=== PATIENT | female | born 1955 | race Hispanic/Latino ===

== ENCOUNTER 2021-07-03 10:22 | Day surgery (SDC) | payer OTHER ==
[2021-06-27 15:20] LABS: Urine Appearance CLEAR (Clear); Urine Bilirubin NEGATIVE (Negative); Urine Blood NEGATIVE (Negative); Urine Color YELLOW (Yellow); Urine Glucose NEGATIVE (Negative); Urine Protein NEGATIVE (Negative); Urine pH 6.5 (5.0-7.0)
[2021-06-27 15:22] LABS: Absolute Lymphocytes (CBC) 3.1 K/uL (0.7-4.9); Basophils % 0.5 % (0-1.3); Hematocrit 39.5 % (36.0-45.0); MPV 7.7 fL (7.6-11.3); RBC Red Blood Cell Count 4.37 M/uL (3.86-4.86)
[2021-06-27 15:28] LABS: Urine Microscopic Reflex NO UMIC
[2021-06-27 15:29] LABS: Protime INR 1.05
[2021-06-27 15:35] LABS: Potassium 3.2 mmol/L (3.5-5.1)
[2021-07-03] MEDS ORDERED: Ringers Lactate 1,000 ML IV ONE ×2 (10:51→16:42)
[2021-07-03] MEDS ORDERED: CEFAZOLIN/SWI 2gm 2 GM/20 ML SYR ONE (10:51)
[2021-07-03] MEDS ORDERED: LIDOCAINE 1% W/EPI 1:100,000 MDV 20 ML VIAL ONE (13:20)
[2021-07-03] MEDS ORDERED: NA CHLORIDE 0.9% 100 ML IV ONE (13:20)
[2021-07-03] MEDS ORDERED: VASOPRESSIN 20 UNIT/ML VIAL ONE (13:21)
[2021-07-03] MEDS ORDERED: propofoL 200 MG/20 ML VIAL IV ONE (13:23)
[2021-07-03] MEDS ORDERED: ROCURONIUM 50 MG/5 ML VIAL IV ONE ×2 (13:23→15:20)
[2021-07-03] MEDS ORDERED: FENTANYL CITR 250 MCG/5 ML ONE (13:24)
[2021-07-03] MEDS ORDERED: LIDOCAINE 2% MPF 5 ML VIAL ONE (13:24)
[2021-07-03] MEDS ORDERED: GLYCOPYRROLATE 0.2 MG/ML SYR ONE (13:24)
[2021-07-03] MEDS ORDERED: MIDAZOLAM HCL 2 MG/2 ML INJ ONE (13:24)
[2021-07-03] MEDS ORDERED: ONDANSETRON 4 MG/2 ML VIAL ONE ×2 (13:25→17:26)
[2021-07-03] MEDS ORDERED: CEFAZOLIN SODIUM 1 GM/VIAL ONE (13:28)
[2021-07-03] MEDS ORDERED: BUPIVACAINE 0.25% PF 30 ML VIAL ONE (13:33)
[2021-07-03] MEDS ORDERED: EPHEDRINE SULF 50 MG/ML VIAL ONE (14:18)
[2021-07-03] MEDS ORDERED: NS 0.9% VIAL 10 ML ONE (14:19)
[2021-07-03] MEDS ORDERED: Phenylephrine HCl 10 MG/ML 1 ML VIAL ONE (14:19)
[2021-07-03] MEDS: Ringers Lactate 1,000 ML IV ONE ×2 (14:35→14:50)
[2021-07-03] MEDS ORDERED: ALBUTEROL INHALER 60 PUFF/8 GM IH PRN (16:41)
[2021-07-03] MEDS ORDERED: ACETAMINOPHEN 500 MG TAB PO PRN (16:42)
[2021-07-03] MEDS ORDERED: PROMETHAZINE INJ 25 MG/ML AMP IV PRN (16:42)
[2021-07-03] MEDS ORDERED: KETOROLAC 30 MG/ML INJ ONE (16:42)
--- NOTE | 2021-07-03 16:48 | P.BOP ---
Preoperative diagnosis: stage 2 ant an dpost wall prolapse,vault prolapse occult BOSSMAN Postoperative diagnosis: same and post enterocele Primary procedure: Ant repair w/biologic graft augmentation,bilSSLFcolpopexy Secondary procedure: post wall and enterocele repairs, TVT-O cysto Local Announcer: Hortencia Garcia Estimated blood loss: 100 Specimen: none Findings: 0/+1/-2/4/mod/7/-1/0/na,post eneterocele,PVDrepair sutures palp on sulci Anesthesia: General Complications: None Drain(s): Urinary catheter Implants: TVT-o dermapure Fluids & blood products: [id number] Transferred to: Recovery Room Condition: Good
[2021-07-03] MEDS ORDERED: FENTANYL CITR 100 MCG/2 ML ONE (17:26)
[2021-07-03 18:12] VITALS: BMI 32.0
[2021-07-03] MEDS: MORPHINE 2 MG/ML SYR IV PRN ×2 (18:40→22:40)
[2021-07-03 19:54] VITALS: O2SAT 99
[2021-07-03] MEDS: Ringers Lactate 1,000 ML IV SCH (22:00)
[2021-07-04] MEDS: MORPHINE 2 MG/ML SYR IV PRN (04:57)
[2021-07-04] MEDS: Ringers Lactate 1,000 ML IV SCH (06:06)
[2021-07-04 07:20] LABS: BUN Blood Urea Nitrogen 8 mg/dL (7-18); Bicarbonate 29 mmol/L (21-32); Glucose Level 91 mg/dL (74-106); Potassium 3.6 mmol/L (3.5-5.1); Sodium Level 140 mmol/L (136-145)
[2021-07-04 07:23] LABS: Absolute Lymphocytes (CBC) 1.6 K/uL (0.7-4.9); Basophils % 0.4 % (0-1.3); Lymphocytes % 15.2 % (15.3-44.8); MPV 7.4 fL (7.6-11.3); RBC Red Blood Cell Count 3.75 M/uL (3.86-4.86)
--- NOTE | 2021-07-04 07:37 | OP ---
Date of Procedure: 07/03/2021 Surgeon: Josi Abarca MD Preoperative Diagnosis: Stage II anterior vaginal wall prolapse and posterior wall prolapse, vault p rolapse, occult stress urinary incontinence. Postoperative Diagnoses: Stage II anterior vaginal wall prolapse and posterior wall prolapse, vault prolapse, occult stress urinary incontinence, and posterior enterocele. Procedures Performed: 1.Anterior repair with biologic graft augmentation and bilateral sacrospinous ligament fixation, col popexy through the anterior approach. 2.Posterior wall repair, enterocele repair, mid urethral sling and cystoscopy. Anesthesia: General. Specimens: No specimens. Complications: No complications. Drains: Peterson catheter and vaginal packing. Estimated Blood Loss: 100 Urine Output: 200 The patient tolerated the procedure well and was transferred to the recovery room in a stable conditi on. Findings: Intraop, POP-Q is 0, +1, -2, 4, moderate, 7, -1, 0, NA. Posterior enterocele was identifi ed during the posterior repair. There was significant midline defect as well as apex rather than par avaginal defect on this patient. After the patient was evaluated in the office, all the options were discussed with the patient. Her condition; diagnoses; alternatives of treatment including pessary, laparoscopic and vaginal repairs w ere all reviewed along with just pelvic floor exercises. The patient was given all reading material and urodynamic study, cystoscopy, and ultrasound were all performed. Ultrasound had no abdominal mas ses or pelvic masses. Cystoscopy did not show any bladder masses suspicious for cancer. Urodynamic study was performed to assess the function of the bladder. Occult stress urinary incontinence was no humberto. After discussing with the patient about the benefits and risks and recurrence rates of both the lapar oscopic and vaginal repairs, proceeded with the vaginal repair as the patient preferred to have vagin al surgery, fully understanding that the recurrence rate is higher than what it is with sacrocolpopex y. She was consented for anterior repair with biologic graft augmentation, bilateral sacrospinous co lpopexy, posterior repair, perineorrhaphy as needed and posterior enterocele as needed, and a mid ure thral sling. After the intraoperative and postoperative complications were explained to the patient in the office as well in the preoperative area, she was consented and taken back to OR. 2 g of Ancef was given. SCDs were started. She was placed in the dorsal lithotomy position after general anesth esia was given in a supine fashion. She was placed in Robert stirrups. All the positioning was check ed. A safe time-out was done. Then, abdomen, vulva, vagina, and perineum were prepped and draped in a sterile fashion. Peterson was placed to drain the bladder and then clamped and retracted superiorly. The urethrovesical junction was picked up with the help of the Allis clamp, and the vaginal epithel ium and the vaginal vault were sutured with 3-0 Vicryl for identification of the wall. Then at the c enter of the vaginal wall just distal to it, an Allis clamp was placed in the midline and the anterio r wall was injected with dilute vasopressin 30 cc. An incision was made in the vaginal epithelium an d sub-epithelium exposing the underlying connective tissue. After getting past the connective tissue , vesicovaginal space was developed. The bladder was dissected medially and then the paravaginal spa ce was opened up. Ischial spine was palpated and it was cleaned up on both sides after both paravagi nal spaces were developed. Then the sacrospinous ligament and coccygeus muscle complex were cleaned up medially and posteriorly to the ischial spine. The bowel protected and moved medially. Then stit ch placed. Then the lateral part of the ischial spine, which is a white line, was cleaned up as well on both sides. Once all these spaces were developed, then the bladder was taken down all the way to the level of the vault and distally all the way to the urethrovesical junction. Then, 2 Prolene sut ures were taken and placed on with the use of 2 additional Capio, mid ligament on the left side and s lightly closer to the ischial spine on the right side as it was very difficult to go through the liga ment as it was mostly muscular. The condensed ligamentous part was closer to the spine, so this stit ch was tied closer to the spine. Once this was done, the two sutures were placed on curved hemostats. Then, lateral sutures were take n on the white line with the PDS Capio sutures and held on straight hemostats. Proximal attachment t o the vault, central Prolene suture was used, 2-0 and then 2 PDS sutures on either sides. Then dista lly 3 PDS sutures were placed to secure the graft to the distal margin. The graft was fashioned 8 cm across at the interspinous distance, 6 cm anterior-posterior and then 5 cm at the distal margin in t he transverse fashion, so this was a trapezoid with 8, 6, 5 measurements. Once the proximal and dist al central areas were secured, the Prolene sutures for the sacrospinous were passed through the graft . The correct site of the graft towards the bladder was identified and placed that right and went do wn to tie the sacrospinous sutures. Then the PDS sutures were placed through the graft and tied down on both sides. Vaginal epithelium was slightly trimmed placing a Nathaly. Then this was closed with the help of 2-0 Vicryl in a continuous running locked fashion. There was excellent support at the ap ex as well as the distal aspect. The lateral support was good; however, the lateral sutures with the PDS that were tied down were slightly more palpable at the sulcus because there was no defect at the sulcus and so the dissection here appeared to be slightly more superficial. Slight perforation was noted at the level of the vaginal epithelium. This was closed with the help of a 3-0 Vicryl suture o n either side making sure that the PDS was not exposed. At this point, the bladder was drained and about 50 cc of urine was obtained. Then, mid urethral are a was picked up with the help of 2 Allis clamps, injected with 10 cc of dilute vasopressin center and on both sides. The patient's legs were placed in high lithotomy. 1 cm midline incision was made wi th the help of scalpel and after tunneling the space to create a track for the sling at a 45-degree a ngle to the horizontal and vertical planes, the inferior pubic ramus was hugged and obturator space w as entered, and obturator membrane perforated and the track widened. Similar dissection on the oppos ite side as well. Wing guide was placed, spike was passed. The wing guide was removed and the exit point of the spike was 2 cm lateral to the groin, 4 cm above the level of the horizontal line, droppe d at the level of the external meatus. Similarly, re-measured on the opposite side. Ej was passe d around the wing guide. Wing guide removed and the spike turned and exited at the point in the groi n as marked. Then both plastic dilators were pulled out. Plastic sheaths were held with the help of Nathaly. In mid urethral area, tensioning of the sling was done with the help of Metzenbaum scissors. Plastic sheaths were pulled out. The mesh was trimmed, flush with the skin. Once the medications were removed, there was excellent tensioning. It was tension-free, yet not too loose. Then the mesh was irrigated with antibiotic solution and epithelium closed with the help of 3-0 Vicryl in a contin uous running locked fashion. Peterson was removed. Cystoscopy was performed with a 30-degree lens, normal saline. Both ureteric jessica fices were patent. The one on the left side was slightly tinier than the other side, but clearly pat ent. No evidence of any bladder tumors, foreign body, or injury to the bladder. Both the sites, rayna pensions for the sling or the vaginal repair were carefully examined and normal. Bladder was drained . After Peterson was replaced, this was attached to a drainage bag. Attention was directed to posterior repair. The hymenal remnants were picked up with the help of All is clamp. The perineum and posterior wall were injected with dilute vasopressin. A juan c-shaped i ncision was placed in a distal one-third and the vaginal epithelium was excised. This was undermined . In the rectovaginal septum, our connective tissue was from the vaginal epithelium and kaufman b-epithelium and this dissection was carried superiorly all the way to the level of the apex and the enterocele was dissected, and the tissues were dissected. There was a site-specific defect. Most of the connective tissue was condensed in the posterior wall and was present mostly in the below half o f the rectovaginal septum. The perineum appeared to be fairly intact, did not want to create a shelf or cause vaginal narrowing for this patient who is menopausal, so did not decide to perform a perineorrhaphy because the vaginal diameter at this point after my repair would be only 4 cm and this was left alone, and the rectovagi nal septum was dissected free and there was a site-specific defect detachment from the right side of the patient's right lateral wall. The posterior enterocele was repaired with the help of 3-0 Vicryl in a pursestring fashion. Once this was closed, then the PDS 2-0 was used in a continuous running fa shion, repaired the reattachment of the rectovaginal septum to the lateral garcia. A simple running s uture was done from side to side and this was closed. Then vaginal epithelium was trimmed slightly a nd closed with the help of 2-0 Vicryl in a continuous running locked fashion and then at the level of the vestibule, the subcutaneous tissues were taken and pulled together with the help of the 2-0 Vicr yl and the suture was taken back in a subcuticular horizontal mattress fashion back inside and tied. Rectal exam was done and negative. There were no sutures at the sacrospinous level of the posterior repair. Gloves were changed. Vaginal packing was placed. Dermabond for the skin incisions at the spikes in the groin. Peterson was left in place. Instrument, needle, and sponge counts were correct at the end of the case. The patient tolerated the procedure well. She will stay overnight and then be recovered and discharged home tomorrow after a voiding trial. Her family, her niece and her sister were notified of her findings. TONY Voice ID: [id number] Report ID: [id number]
[2021-07-04 08:11] VITALS: BP 149/74; TEMP 98.3
[2021-07-04] MEDS ORDERED: LOSARTAN/HCTZ 50-12.5 PO SCH (09:00)
[2021-07-04] MEDS ORDERED: PANTOPRAZOLE 40MG TABLET PO SCH (09:00)
[2021-07-05] MEDS ORDERED: Ringers Lactate 1,000 ML IV ONE (02:19)
== END 2021-07-04 10:39 | disposition home or self-care (01) ==
LOC: OR 10:22 → 2ND-WC 18:00 → OR 07-04 10:39
PROVIDERS: ATTEND Obstetrics & Gynecology
PROC: 0JQC0ZZ Repair Pelvic Region Subcutaneous Tissue and Fascia, Open Approach (ICD-10-PCS; 2021-07-03)
PROC: 0TSD0ZZ Reposition Urethra, Open Approach (ICD-10-PCS; 2021-07-03)
PROC: 0USG7ZZ Reposition Vagina, Via Natural or Artificial Opening (ICD-10-PCS; 2021-07-03)
PROC: 0JQC0ZZ Repair Pelvic Region Subcutaneous Tissue and Fascia, Open Approach (ICD-10-PCS; principal; 2021-07-03 11:30)
DX: N81.4 Uterovaginal prolapse, unspecified (principal); N39.3 Stress incontinence (female) (male); N81.6 Rectocele; I10 Essential (primary) hypertension; Z20.822 Contact with and (suspected) exposure to COVID-19
CPT/HCPCS: 85025 ×2; 80048 ×3; 36415 ×3; 86900; 86850; 85610; 86901; 85730; 81003; 57240; 57250; 57288; 57282; U0003; J2704; J2370; J2250; J3010 ×2; J2270 ×2; J0690 ×2; J7120 ×4; J2405 ×2

== ENCOUNTER → 2021-12-19 | Day surgery (SDC) | payer OTHER ==
--- NOTE | 2021-12-19 11:59 | RAD REPORT ---
EXAM DESCRIPTION: US - Breast Core BX w/US Guidance - 12/19/2021 9:31 am CLINICAL HISTORY: R92.8, R59.0 COMPARISON: Ultrasound 12/10/2021 TECHNIQUE: The patient presents for ultrasound-guided biopsy of a cluster of left axillary lymph nod es. The ultrasound-guided core biopsy procedure, risks and alternatives were discussed with the patient i n detail. After answering all questions, both oral and written consent were obtained. Time out proced ure was performed. The patient had no contraindicated allergy or medication history. Preliminary imaging identified the cluster of multiple suspicious axillary lymph nodes. The left axil la was prepped and draped in the usual sterile fashion. From a(n) inferior approach, skin and deeper tissues were anesthetized with 1% lidocaine. Under direct sonographic visualization a a 17 gauge intr oducer needle was advanced and placed at the margin of the mass. An 18 gauge 2 centimeter core biopsy needle was then passed through the introducer needle into the lymph node. There were a total of 4 co re biopsies obtained under direct sonographic guidance. The mass did appear to have distortion in con tour supporting transit of the biopsy needle through the lymph node on all 4 tissue acquisitions. Int roducer needle was withdrawn and direct pressure was applied to the puncture site and soft tissues ne ar the lymph node. Hemostasis was obtained. Post biopsy imaging showed no hematoma or biopsy complica tion. Sterile bandage was placed to the puncture site. Post procedure care and precaution instructions were given to the patient. IMPRESSION: 1. Ultrasound-guided core biopsy was performed of an abnormal left axillary lymph node. All obtained material was given to pathology for histologic assessment. 2. Post biopsy imaging showed no hematoma or other biopsy related complication.
== END ==
LOC: DS 08:32
PROVIDERS: ATTEND Nurse Practitioner Family
DX: C77.3 Secondary and unspecified malignant neoplasm of axilla and upper limb lymph nodes (principal); R92.8 Other abnormal and inconclusive findings on diagnostic imaging of breast; R59.0 Localized enlarged lymph nodes; C50.912 Malignant neoplasm of unspecified site of left female breast; Z17.1 Estrogen receptor negative status [ER-]
CPT/HCPCS: 19083; 88305